=== PATIENT | female | born 1980 | race Caucasian/White ===

== ENCOUNTER 2016-10-31 14:25 | Inpatient (IN) | payer BC ==
[2016-10-31 15:46] VITALS: BMI 29.2
[2016-10-31 15:51] LABS: BASOPHIL 0.3 % (0-2.0); EOSINOPHIL 0.5 % (0-4.5); MCHC 33.7 g/dl (32.0-36.0); MEAN CELL VOLUME 95.1 fl (80-96); NEUTROPHILS 79.3 % (42.8-82.8); PLATELET COUNT 224 K/MM3 (134-434); RDW 13.9 % (11.6-15.6); WHITE BLOOD COUNT 11.1 K/mm3 (4.0-10.0)
[2016-10-31] MEDS ORDERED: TUBERCULIN PPD 5 TU/0.1ML SYRINGE (IN PATIENT USE ONLY) ID ONE (16:00)
[2016-10-31 16:23] LABS: CALCIUM 9.3 mg/dL (8.5-10.1); CREATININE 0.7 mg/dL (0.55-1.02)
[2016-10-31 16:41] LABS: INR 0.83 (0.82-1.09); PROTHROMBIN TIME (PATIENT) 9.1 SEC (9.98-11.88)
[2016-10-31 16:44] LABS: ACTIVATED PTT 24.4 SECONDS (26.9-34.4)
[2016-10-31 18:06] LABS: URINE APPEARANCE CLEAR; URINE BILIRUBIN NEGATIVE (NEGATIVE); URINE BLOOD NEGATIVE (NEGATIVE); URINE COLOR STRAW; URINE GLUCOSE (UA) NEGATIVE (NEGATIVE); URINE KETONE NEGATIVE (NEGATIVE); URINE LEUK ESTERASE NEGATIVE (NEGATIVE); URINE NITRITE NEGATIVE (NEGATIVE); URINE PROTEIN NEGATIVE (NEGATIVE); URINE UROBILINOGEN NEGATIVE E.U./dl (0.2-1.0)
[2016-10-31] MEDS ORDERED: DINOPROSTONE 10 MG VAGINAL SUPPOSITORY VG ONE (18:39)
[2016-10-31] MEDS: DEXTROSE 5%-LACTATED RINGERS 1,000 ML IV SCH (18:53)
--- NOTE | 2016-10-31 18:55 | HP ---
Past Medical History - Primary Care Physician PCP:: Pavel Hester - Admission Chief Complaint: 36 yo with at EGA 40wk and PROM since 2am ( x16hrs) admitted for labor induction. History of Present Illness: Leaking clear fluid since 2am. GBS(-) AMA. 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: No: Alzheimer's, CVA, Dementia, Migraine, Multiple Sclerosis, Peripheral Neuropathy, Parkinson's, Seizure, Syncope, TIA, Vertigo, Other Cardiovascular: No: AFIB, Aneurysm, Aortic Insufficiency, Aortic Stenosis, CAD, CHF, Deep Vein Thrombosis, HTN, Hyperlipdemia, AR, Mitral Insufficiency, Mitral Stenosis, Murmur, Pulmonary Hypertension, Other Pulmonary: No: Asthma, Bronchitis, Cancer, COPD, O2 Dependent, Pneumonia, Previously Intubated, Pulmonary Embolus, Pulmonary Fibrosis, Sleep Apnea, Other Gastrointestinal: No: Ascites, Cancer, Constipation, Crohn's Disease, Diverticulitis, Diverticulosis, Esophageal Varices, Gastritis, GERD, GI Bleed, Hemorrhoids, Hiatal Hernia, Inflamatory Bowel Disease, Irritable Bowel Disease, Pancreatitis, Peptic Ulcer Disease, Ulcerative Colitis, Other Hepatobiliary: No: Cirrhosis, Cholelithiasis, Cholecystitis, Choledocholithiasis , Hepatitis A, Hepatitis B, Hepatitis C, Other Renal/: No: Renal Failure, Renal Inusuff, BPH, Cancer, Hematuria, Hemodialysis , Neurogenic Bladder, Renal Calculi, UTI, Other Reproductive: No: Ectopic , Endometriosis, Fibroids, PID, Polycystic Ovary Syndrome, Postmenopausal, Other ...: 1 ...Para: 0 ...Term: 0 ...: 0 ...Spon : 0 ...Induced : 0 ...Multiple Gestation: 0 ...LMP: 01/25/16 ... Weeks Gestation by Dates: 40 ...EDC by Dates: 10/31/16 Heme/Onc: No: Anemia, B12 Deficiency, Bleeding Disorder, Cancer, Current Chemotherapy, Current Radiation Therapy, Hemochromatosis, Hypercoaguable State, Myeloproliferative Synd, Sickle Cell Disease, Sickle Cell Trait, Thrombocytopenia, Other Infectious Disease: Yes: C-Diff (2003) Psych: Yes: Depression (resolved) Musculoskeletal: No: Bursitis, Chronic low back pain, Hemiparesis, Hemiplegia, Osteoarthritis, Paraplegia, Other Rheumatology: No: Fibromyalgia, Gout, Lupus, Rheumatoid Arthritis, Sarcoidosis, Vasculitis, Other ENT: No: Allergic Rhinitis, Sinusitis, Other Endocrine: No: [place]'s Disease, Louis's Disease, Diabetes Insipidus, Diabetes Mellitus, Hyperparathyroidism, Hyperthyroidism, Hypothyroidism, Osteopenia, SIADH, Other Dermatology: Yes: Other (seborrheic keratosis) - Past Surgical History Hx Myomectomy: No Hx Transabdominal Cerclage: No Additional Surgical History: [place] Teeth - Smoking History Smoking history: Never smoked Have you smoked in the past 12 months: No - Alcohol/Substance Use Hx Alcohol Use: No History of Substance Use: reports: None - Social History Usual Living Arrangement: Yes: With Spouse ADL: Independent Occupation: [employer] History of Recent Travel: No Home Medications - Allergies Allergies/Adverse Reactions: Allergies Allergy/AdvReac Type Severity Reaction Status Date / Time No Known Allergies Allergy Verified 10/31/16 15:47 - Home Medications Home Medications: Ambulatory Orders Vit No.130/Iron/FA [ Vitamins] 1 each PO DAILY 10/31/16 Family Disease History - Family Disease History Family History: Unremarkable Review of Systems Findings/Remarks: Well appearing - Review of Systems Constitutional: reports: No Symptoms Eyes: reports: No Symptoms HENT: reports: No Symptoms Neck: reports: No Symptoms Cardiovascular: reports: No Symptoms Respiratory: reports: No Symptoms Gastrointestinal: reports: Dysphagia Genitourinary: reports: Other (Leaking clear fluids) Breasts: reports: No Symptoms Reported Musculoskeletal: reports: No Symptoms Integumentary: reports: No Symptoms Neurological: reports: No Symptoms Endocrine: reports: No Symptoms Hematology/Lymphatic: reports: No Symptoms Psychiatric: reports: No Symptoms Pain Intensity: 0 Physical Exam - Maternity Vital Signs: Vital Signs Temperature 97.7 F 10/31/16 15:00 Pulse Rate 80 10/31/16 18:03 Respiratory Rate 20 10/31/16 18:03 Blood Pressure 122/73 10/31/16 18:03 O2 Sat by Pulse Oximetry (%) Constitutional: Yes: Well Nourished, No Distress, Calm Eyes: Yes: WNL, Conjunctiva Clear HENT: Yes: WNL, Atraumatic, Normocephalic Neck: Yes: WNL, Supple Cardiovascular: Yes: WNL, Regular Rate and Rhythm Lungs: Clear to auscultation, Normal air movement Breast(s): Yes: WNL - Abdominal Exam/OB Fundal Height: 40 Number of Fetuses: Single Presentation: Vertex Contractions: Yes Regularity: Irritability Intensity: Unaware Monitor Mode: External Heart Rate (range): 130 Category: I Accelerations: Non-Uniform Decelerations: None - Vaginal Exam/OB Vaginal Bleediing: No Speculum Exam: Yes Dilatation (cm): 0 Effacement (%): 50 Amniotic Membrane Status: Leaking Nitrazine Test: Positive Amniotic Fluid: Yes: Clear Presentation: Vertex/Position Station: -3 (Adequate gynecoid pelvimetry) - Physical Exam Musculoskeletal: Yes: WNL Extremities: Yes: WNL Edema: No Integumentary: Yes: WNL Deep Tendon Reflex Grade: Normal +2 ...Motor Strength: WNL Psychiatric: Yes: WNL, Alert, Oriented - Labs Lab Results: CBC, BMP 10/31/16 15:10 10/31/16 15:10 Hemorrhage Risk Assessment - Risk Factors Medium Risk Factors: Yes: None High Risk Factors: Yes: None Risk Score: 1 Risk Level: Medium Risk Imaging - Results Ultrasound: Report Reviewed Assessment/Plan 36 yo with at EGA 40wk and PROM since 2am (x16hrs) admitted for labor induction. Fetus with Category I tracing. Pt is not in labor. Cervical exam is not favorable. We discussed treatment options reviewed. Recommend cervical ripening with Cervidil, followed by pitocin if not in labor. Risks, benefits, alternatives of Cervidil and pitocin were discussed. The risks of infection, bleeding, uterine tachysystole, distress, uterine atony, shoulder dystocia, etc. explained. Pt agreed with plan and requested to proceed.
[2016-11-01] MEDS: DEXTROSE 5%-LACTATED RINGERS 1,000 ML IV SCH (02:00)
[2016-11-01] MEDS ORDERED: ELECTROLYTE-148 SOLN 1,000 ML IV SCH (09:30)
[2016-11-01] MEDS ORDERED: OXYTOCIN 15 UNITS/ LR 250 ML 250 ML IVPB SCH (09:30)
--- NOTE | 2016-11-01 10:07 | PN ---
Ante-Partal Exam - Subjective Subjective: No complaints, rare ctx's Vital Signs: Vital Signs Temperature 97.6 F 11/01/16 07:00 Pulse Rate 90 11/01/16 08:00 Respiratory Rate 20 11/01/16 08:00 Blood Pressure 124/80 11/01/16 08:00 O2 Sat by Pulse Oximetry (%) Bleeding: No Headache: No Visual changes: No Right upper quadrant pain: No Pain (scale 1-10): 0 - Contractions Contractions: Yes Regularity: Irritability Intensity: Unaware Monitor Mode: External - Exam during Labor Heart Rate: 135 Variability: Moderate Heart Rate Location: Midline Category: I Monitor Accelerations: Present Monitor Decelerations: None Exam: Vaginal (by RN) Amniotic Membrane Status: Leaking Presentation: Vertex - Assessment/Plan Assessment/Plan: 36 yo P0 with PROM for over 24hrs, not in labor. The fetus with Category I tracing. Cervix is closed on exam by RN. Plan to minimize VE to decrease risk of chorio. We discussed the tx options with the pt and will induce labor with pitocin. Risks, benefits, alternatives of pitocin discussed. The pt declined C/ S. Risks of infection, distress, uterine atony, emergency C/S explained.
[2016-11-01] MEDS ORDERED: TUBERCULIN PPD 5 TU/0.1ML SYRINGE (IN PATIENT USE ONLY) ID ONE (10:15)
--- NOTE | 2016-11-01 13:15 | PN ---
Ante-Partal Exam - Subjective Subjective: Pt is c/o pain with contractions and requested to be examined. Patient was ambulating. Vital Signs: Vital Signs Temperature 97.8 F 11/01/16 12:00 Pulse Rate 74 11/01/16 12:00 Respiratory Rate 20 11/01/16 12:00 Blood Pressure 131/78 11/01/16 12:00 O2 Sat by Pulse Oximetry (%) Bleeding: No Headache: No Visual changes: No Right upper quadrant pain: No Pain (scale 1-10): 7 - Contractions Contractions: Yes Regularity: Irregular Intensity: Mild/Mod Monitor Mode: External - Exam during Labor Heart Rate: 140 Variability: Moderate Heart Rate Location: Midline Category: I (There is some LOC with contractions due to pt leaning forward (not variables)) Monitor Accelerations: Present Monitor Decelerations: None Exam: Vaginal Dilatation (cm): 1 Effacement (%): 70 Amniotic Membrane Status: Leaking Amniotic Fluid: Clear Presentation: Vertex - Intrapartum Hemorrhage Risk Medium Risk Factors: None High Risk Factors: None Risk Score: 0 Risk Level: Low Risk - Assessment/Plan Assessment/Plan: 36yo P0 with PROM, undergoing labor induction. The Fetus with Category I tracing. Continue labor induction.
[2016-11-01] MEDS ORDERED: BUTORPHANOL TARTRATE 1 MG/ML VIAL IVPUSH ONE (14:30)
[2016-11-01] MEDS ORDERED: PROMETHAZINE HCL 25 MG/1 ML VIAL IVPUSH SCH (14:30)
--- NOTE | 2016-11-01 15:29 | PN ---
Ante-Partal Exam - Subjective Subjective: No complaints. Sleeping after Stadol Vital Signs: Vital Signs Temperature 97.5 F L 11/01/16 14:00 Pulse Rate 73 11/01/16 15:00 Respiratory Rate 20 11/01/16 15:00 Blood Pressure 131/83 11/01/16 15:00 O2 Sat by Pulse Oximetry (%) Bleeding: No Headache: No Visual changes: No Right upper quadrant pain: No Pain (scale 1-10): 4 - Contractions Contractions: Yes (q2-3min) Regularity: Regular Intensity: Mild/Mod Monitor Mode: External - Exam during Labor Heart Rate: 130 Variability: Moderate Heart Rate Location: Midline Category: I Monitor Accelerations: Absent Monitor Decelerations: None Amniotic Fluid: Clear Presentation: Vertex - Assessment/Plan Assessment/Plan: 36 yo Po with PROM undergoing induction. tracing is category I. No s/sx of chorio at this time. Continue to monitor. Will not examine until necessary
--- NOTE | 2016-11-01 20:21 | PN ---
Ante-Partal Exam - Subjective Subjective: Pt with painful contractions Vital Signs: Vital Signs Temperature 98.4 F 11/01/16 16:53 Pulse Rate 76 11/01/16 16:53 Respiratory Rate 20 11/01/16 16:53 Blood Pressure 132/81 11/01/16 16:53 O2 Sat by Pulse Oximetry (%) Bleeding: No Headache: No Visual changes: No Right upper quadrant pain: No Pain (scale 1-10): 8 - Contractions Contractions: Yes Regularity: Regular Intensity: Moderate Monitor Mode: External - Exam during Labor Heart Rate: 135 Variability: Moderate Heart Rate Location: Midline Category: I Monitor Accelerations: Absent Monitor Decelerations: None Exam: Vaginal Dilatation (cm): 1 Effacement (%): 90 Amniotic Membrane Status: Leaking Amniotic Fluid: Clear Presentation: Vertex Station: -3 - Intrapartum Hemorrhage Risk Medium Risk Factors: None High Risk Factors: None Risk Score: 0 Risk Level: Low Risk - Assessment/Plan Assessment/Plan: 36 yo P0 with failed induction and PROM. We discussed the mgt options and the pt prefers to proceed with C/S. The risks, benefits, alternatives of surgery were reviewed. The risks of infx, bleeding, injury to underlying organs, pain, scarring, injury to the baby, etc. were discussed. The pt requested to proceed with surgery.
--- NOTE | 2016-11-01 21:32 | OP ---
Operative Note - Note: Operative Date: 11/01/16 Pre-Operative Diagnosis: Failed induction, PROM Operation: Primary LT C/S Findings: Live baby girl in vtx presentation, no meconium in amniotic fluid. 9/9 Normal uterus, tubes, ovaries Surgeon: Pavel Hester Director Staffing: Damaso Bobo Anesthesiologist/SWITCH CREW SUPERVISOR: Ramone Olguin Anesthesia: Spinal Specimens Removed: Placenta Estimated Blood Loss (mls): 500 Drains & Tubes with Location: Cortez Catheter Drains, Volume Out (mls): 100 Blood Volume Replaced (mls): 0 Fluid Volume Replaced (mls): 1,800 Operative Report Dictated: Yes
[2016-11-01] MEDS ORDERED: BENZOCAINE 20% 57 GM BOTTLE TP PRN (21:38)
[2016-11-01] MEDS ORDERED: METHYLERGONOVINE MALEATE 0.2 MG/1 ML AMP IM PRN (21:38)
[2016-11-01] MEDS ORDERED: SENNOSIDES/DOCUSATE COMBO (SENNA PLUS) TABLET (UD) PO PRN (21:38)
[2016-11-01] MEDS ORDERED: BENZOCAINE 28 GM HEMORRHOIDAL OINTMENT TP PRN (21:38)
[2016-11-01] MEDS ORDERED: oxyCODONE HCL 5 MG TABLET PO PRN (21:38)
[2016-11-01] MEDS ORDERED: WITCH HAZEL 50% (TUCKS) 40 PAD/JAR PAD TP PRN (21:38)
[2016-11-01] MEDS ORDERED: D5W-LR W/ 20 UNITS OXYTOCIN 1,000 ML IV SCH (21:45)
[2016-11-01] MEDS ORDERED: ONDANSETRON 4 MG/2 ML VIAL IVPB PRN (21:45)
[2016-11-02] MEDS: DEXTROSE 5%-LACTATED RINGERS 1,000 ML IV SCH ×3 (02:05→13:33)
[2016-11-02 07:35] LABS: BASOPHIL 0.3 % (0-2.0); EOSINOPHIL 0.3 % (0-4.5); MCH 32.6 pg (25.7-33.7); MCHC 33.8 g/dl (32.0-36.0); MEAN CELL VOLUME 96.4 fl (80-96); MEAN PLT VOLUME 9.6 fl (7.5-11.1); NEUTROPHILS 78.6 % (42.8-82.8); PLATELET COUNT 177 K/MM3 (134-434); RDW 14.1 % (11.6-15.6); WHITE BLOOD COUNT 13.2 K/mm3 (4.0-10.0)
[2016-11-02] MEDS: ENOXAPARIN NA (PORCINE) 40 MG/0.4 ML DISP.SYRIN SQ SCH ×2 (09:52→09:53)
[2016-11-02] MEDS: PRENATAL VITAMINS W/ FOLIC ACID TABLET (FP) PO SCH (09:52)
--- NOTE | 2016-11-02 12:31 | PN ---
Progress Note (short form) - Note Progress Note: Anesthesiology post-op POD #0 s/p C/S under spinal. Pt. feels well, able to move legs, denies h/a. Cortez still in place and draining. Pain under control. VSS, no apparent anesthesia-related complications.
--- NOTE | 2016-11-02 12:47 | OP ---
DATE OF OPERATION: 11/01/2016 PREOPERATIVE DIAGNOSIS: Failed induction of labor, pre-labor rupture of membranes. POSTOPERATIVE DIAGNOSIS: Failed induction of labor, pre-labor rupture of membranes. PROCEDURE: Primary low transverse section via a Pfannenstiel skin incision. SUGEON: Pavel Hester MD RADIO INTERFERENCE EXPERT: GLENYS Worrell ANESTHESIOLOGIST: Ramone Olguin MD ANESTHESIA: Spinal. COMPLICATIONS: None. ESTIMATED BLOOD LOSS: 500 mL. URINE OUTPUT: 100 mL of clear urine at the end of the procedure. INTRAVENOUS FLUIDS: 1800 mL. PATHOLOGY: Placenta. FINDINGS: Live baby girl in vertex presentation, no meconium in amniotic fluids. Apgars are 9 and 9. Normal uterus, fallopian tubes and ovaries. PROCEDURE: The patient was met preoperatively. Risks, benefits and alternatives of surgery were discussed in details. All questions were answered. The patient was brought to the OR with the IV running. She was placed on the surgical table in the sitting position. The spinal anesthesia was achieved without difficulties. The patient was then placed in the supine position with leftward tilt. A Cortez catheter was inserted and left to drain to gravity. The patient was prepped and draped in the usual sterile fashion. The surgeons then proceeded with the operation. A Pfannenstiel skin incision was made with the knife approximately 2 cm above the pubic symphysis. The incision was extended to the level of fascia. The fascia was incised in the midline and the incision was extended bilaterally using Angeles scissors. The fascia was dissected superiorly and inferiorly away from the rectus muscles. The rectus muscles were bluntly. The peritoneum was identified and entered sharply. The peritoneal incision was extended superiorly and inferiorly. The bladder peritoneum was then dissected away from the lower uterine segment. The bladder was reflected downwards. The uterus was incised transversely in the lower uterine segment. The uterine incision was extended bilaterally using bandage scissors. The baby was delivered from vertex presentation without complications. The umbilical cord was clamped and cut. The baby was crying spontaneously and was handed to the awaiting Coiler Operator. The placenta was delivered manually without complications. The uterus was cleared of clots and debris. The uterine incision was repaired using a 0 Biosyn suture in a running-locking stitch with good hemostasis and approximation. The uterine incision was then imbricated using a 0 Biosyn suture with good hemostasis and approximation. The bladder peritoneum was approximated using a 0 Biosyn suture. The operative site was irrigated using copious amounts of normal saline. Once the saline was aspirated, good hemostasis was confirmed. The abdominal peritoneum was then closed using a 2-0 chromic suture. The rectus muscles were approximated in the midline using 2-0 chromic sutures. The fascia was closed using a 0 Vicryl suture with a running stitch. The subcutaneous adipose tissues were approximated to eliminate space. The skin was approximated using a 4-0 Vicryl suture with a subcutaneous stitch. Good hemostasis and approximation were noted. Sponge, lap and instrument counts were correct. The patient tolerated the procedure well and was transferred to the recovery room in stable condition. Ni BARBOZA/[id number]
--- NOTE | 2016-11-02 12:58 | PN ---
Post Progress Note - Subjective Subjective: No complaints, (+) flatus, no nausea or vomiting. Type of Delivery: Primary C/S Vital Signs: Vital Signs Temperature 97.7 F 11/02/16 10:00 Pulse Rate 77 11/02/16 10:00 Respiratory Rate 20 11/02/16 12:00 Blood Pressure 110/62 11/02/16 10:00 O2 Sat by Pulse Oximetry (%) 100 11/01/16 22:15 Breast Exam: Yes: Soft Uterus: Yes: Fundus Firm, Fundus below umbilicus Incision: Yes: Dressing dry and intact Abdomen/GI: Yes: Abdomen soft, Passing flatus, Tolerating PO Lochia: Yes: Rubra Lochia, amount: Small Extremities: Yes: Calves non-tender Perineum: Yes: Intact Activity: Ambulating - Labs Labs: CBC WBC 13.2 K/mm3 (4.0-10.0) H 11/02/16 06:15 RBC 3.36 M/mm3 (3.60-5.2) L 11/02/16 06:15 Hgb 11.0 GM/dL (10.7-15.3) D 11/02/16 06:15 Hct 32.4 % (32.4-45.2) D 11/02/16 06:15 MCV 96.4 fl (80-96) H 11/02/16 06:15 MCHC 33.8 g/dl (32.0-36.0) 11/02/16 06:15 RDW 14.1 % (11.6-15.6) 11/02/16 06:15 Plt Count 177 K/MM3 (134-434) D 11/02/16 06:15 MPV 9.6 fl (7.5-11.1) 11/02/16 06:15 Neutrophils % 78.6 % (42.8-82.8) 11/02/16 06:15 Lymphocytes % 14.8 % (8-40) 11/02/16 06:15 Monocytes % 6.0 % (3.8-10.2) 11/02/16 06:15 Eosinophils % 0.3 % (0-4.5) 11/02/16 06:15 Basophils % 0.3 % (0-2.0) 11/02/16 06:15 Assessment/Plan 36 yo P1 s/p primary LT C/S, doing well stable, afebrile. care instructions reviewed. Continue routine postop care. Ambulation encouraged.
[2016-11-02] MEDS: IBUPROFEN 800 MG/8 ML IJ IVPB PRN ×2 (13:33→21:27)
[2016-11-02] MEDS ORDERED: BISACODYL 10 MG SUPP.RECT RC PRN (21:38)
[2016-11-03] MEDS: ACETAMINOPHEN 325 MG TABLET (FP) PO PRN ×2 (07:11→16:52)
[2016-11-03] MEDS: IBUPROFEN 600 MG TABLET (FP) PO PRN ×2 (07:11→16:51)
[2016-11-03] MEDS: SIMETHICONE 80 MG TAB.CHEW (FP) PO PRN ×2 (07:11→16:51)
[2016-11-03] MEDS: ENOXAPARIN NA (PORCINE) 40 MG/0.4 ML DISP.SYRIN SQ SCH (10:05)
[2016-11-03] MEDS: PRENATAL VITAMINS W/ FOLIC ACID TABLET (FP) PO SCH (10:11)
--- NOTE | 2016-11-03 21:22 | PN ---
Post Progress Note - Subjective Subjective: No complaints. Post Day: 2 Type of Delivery: Primary C/S Vital Signs: Vital Signs Temperature 98.3 F 11/03/16 08:33 Pulse Rate 74 11/03/16 08:33 Respiratory Rate 20 11/03/16 08:33 Blood Pressure 128/83 11/03/16 08:33 O2 Sat by Pulse Oximetry (%) 100 11/01/16 22:15 Breast Exam: Yes: Soft Uterus: Yes: Fundus Firm, Fundus below umbilicus Incision: Yes: Sutures intact Abdomen/GI: Yes: Abdomen soft, Passing flatus, Tolerating PO Lochia: Yes: Rubra Lochia, amount: Small Extremities: Yes: Calves non-tender Perineum: Yes: Intact Activity: Ambulating - Labs Labs: CBC WBC 13.2 K/mm3 (4.0-10.0) H 11/02/16 06:15 RBC 3.36 M/mm3 (3.60-5.2) L 11/02/16 06:15 Hgb 11.0 GM/dL (10.7-15.3) D 11/02/16 06:15 Hct 32.4 % (32.4-45.2) D 11/02/16 06:15 MCV 96.4 fl (80-96) H 11/02/16 06:15 MCHC 33.8 g/dl (32.0-36.0) 11/02/16 06:15 RDW 14.1 % (11.6-15.6) 11/02/16 06:15 Plt Count 177 K/MM3 (134-434) D 11/02/16 06:15 MPV 9.6 fl (7.5-11.1) 11/02/16 06:15 Neutrophils % 78.6 % (42.8-82.8) 11/02/16 06:15 Lymphocytes % 14.8 % (8-40) 11/02/16 06:15 Monocytes % 6.0 % (3.8-10.2) 11/02/16 06:15 Eosinophils % 0.3 % (0-4.5) 11/02/16 06:15 Basophils % 0.3 % (0-2.0) 11/02/16 06:15 Assessment/Plan 36 yo P1 s/p primary LT C/S, doing well stable, afebrile. care instructions reviewed. Continue routine postop care. Ambulation encouraged.
[2016-11-04 07:20] LABS: BASOPHIL 0.4 % (0-2.0); EOSINOPHIL 1.8 % (0-4.5); MCH 33.3 pg (25.7-33.7); MCHC 34.5 g/dl (32.0-36.0); MEAN CELL VOLUME 96.6 fl (80-96); MEAN PLT VOLUME 9.3 fl (7.5-11.1); NEUTROPHILS 65.5 % (42.8-82.8); PLATELET COUNT 185 K/MM3 (134-434); RDW 14.3 % (11.6-15.6); WHITE BLOOD COUNT 8.2 K/mm3 (4.0-10.0)
[2016-11-04] MEDS: ACETAMINOPHEN 325 MG TABLET (FP) PO PRN ×2 (09:51→17:18)
[2016-11-04] MEDS: PRENATAL VITAMINS W/ FOLIC ACID TABLET (FP) PO SCH (09:51)
[2016-11-04] MEDS: IBUPROFEN 600 MG TABLET (FP) PO PRN ×2 (09:52→17:18)
[2016-11-04] MEDS: ENOXAPARIN NA (PORCINE) 40 MG/0.4 ML DISP.SYRIN SQ SCH (09:57)
[2016-11-05] MEDS: IBUPROFEN 600 MG TABLET (FP) PO PRN (06:20)
[2016-11-05] MEDS: ACETAMINOPHEN 325 MG TABLET (FP) PO PRN (06:20)
[2016-11-05 09:54] VITALS: BP 131/73; PULSE 71; TEMP 97.8
[2016-11-05] MEDS: PRENATAL VITAMINS W/ FOLIC ACID TABLET (FP) PO SCH (09:55)
[2016-11-05] MEDS: ENOXAPARIN NA (PORCINE) 40 MG/0.4 ML DISP.SYRIN SQ SCH (09:55)
--- NOTE | 2016-11-06 14:26 | PATH ---
Surgical Pathology Report Patient Name: PB MARTINEZ Med. Rec. #: [id number] /Age/Gender: 1980 (Age: 36) / F Account: [id number] Location: [facility] OBS/CIGAR WRAPPER Taken: 11/01/2016 Received: 11/04/2016 Reported: 11/06/2016 Physicians: Pavel Hester M.D. Specimen(s) Received PLACENTA Clinical History , 40.1 weeks SROM greater than 40 hours, failure to progress Primary c/section Final Diagnosis PLACENTA, DELIVERY: FOCALLY DISRUPTED THIRD TRIMESTER PLACENTA WITH MODERATE PREVILLOUS, PERIVILLOUS, AND PRECHORIONIC FIBRIN DEPOSITION, THREE VESSEL UMBILICAL CORD, AND UNREMARKABLE PLACENTAL MEMBRANES. Electronically Signed Abdoul Fried M.D. Gross Description The specimen is received fresh, labeled "placenta" and is a 535 gram, 21.0 x 18.0 x 2.3 cm placenta with attached membranes and umbilical cord. The attached membranes are zapata, translucent with focal opacities and insert marginally. The umbilical cord measures 15 cm in length and averages 1 cm in diameter. The cord inserts eccentrically, 5 cm. to the nearest margin. No true knots or strictures are identified. Cut surface of the umbilical cord reveals 3 vessels. The surface is simons-blue with fibrin deposition and appropriate caliber vessels. The maternal surface is red-brown with focal defects. Sectioning reveals red-brown, spongy parenchyma. No focal lesions are identified. Bed And Breakfast Innkeeper sections are submitted in three cassettes as follows: 1- membrane rolls and umbilical cord; 2-3- full thickness sections of placenta. 11/05/2016 [facility]11/05/2016
== END 2016-11-05 12:05 | disposition home or self-care (01) | DRG 766 ==
LOC: JLDR 14:25 → J3W 11-01 23:00
PROVIDERS: ADMIT Obstetrics & Gynecology; ATTEND Obstetrics & Gynecology
PROC: 10D00Z1 Extraction of Products of Conception, Low, Open Approach (ICD-10-PCS; principal; 2016-11-01)
DX: O62.1 Secondary uterine inertia (principal); O61.0 Failed medical induction of labor; Z3A.40 40 weeks gestation of pregnancy; O09.513 Supervision of elderly primigravida, third trimester; O42.92 Full-term premature rupture of membranes, unspecified as to length of time between rupture and onset of labor; Z37.0 Single live birth
CPT/HCPCS: 36415; 80048; 81003; 85025; 85610; 85730; 86593; 86850; 86900; 86901; 88307-TC